=== PATIENT | female | born 1965 | race Two or more races ===

== ENCOUNTER 2018-01-17 15:58 | Inpatient (IN) | payer BC ==
[~2018-01-17] VITALS: Ht 160 cm; Wt 72.0 kg
[2018-01-17 16:52] LABS: Basophils # (auto) 0.1 uL; Eosinophils # (auto) 0 uL; Eosinophils % (auto) 0.2 % (0.0-7.0); Lymphocytes # (auto) 0.9 uL; Mean Corpuscular Volume 61.4 fL (80.0-100.0); Monocytes # (auto) 0.9 uL; Neutrophils # (auto) 6.2 uL; White Blood Cell 8.1 10^3/uL (4.4-10.8)
[2018-01-17 16:54] LABS: Basophils % (auto) 0.8 % (0.0-2.0); Hematocrit 29.4 % (36.0-46.0); Hemoglobin 8.5 g/dL (12.2-16.2); Mean Corpuscular Hemoglobin 17.8 pg (28.0-32.0); Mean Corpuscular Hgb Conc. 29.1 g/dL (32.0-36.0); Monocytes % (auto) 11.7 % (0.0-12.0); Neutrophils % (auto) 76.3 % (37.0-80.0); Platelet Count (auto) 380 10^3/uL (140-450); Red Blood Cells 4.79 10^6/uL (4.0-5.20)
[2018-01-17 17:04] LABS: Albumin 3.8 g/dL (3.4-5.0); Calcium 8.3 mg/dL (8.5-10.1); Potassium 3.5 mmol/L (3.5-5.1)
[2018-01-17 17:07] LABS: BUN/Creatinine Ratio 12.8; Bilirubin, Total 0.5 mg/dL (0.2-1.0); Total Protein 8.5 g/dL (6.4-8.2)
[2018-01-17 17:23] LABS: Urine Bacteria FEW /hpf (None Seen); Urine Blood TRACE /uL (Negative); Urine Mucus FEW (None Seen); Urine Specific Gravity 1.025 (1.001-1.035); Urine WBC 3 /hpf (0 - 5)
[2018-01-17 17:29] LABS: Red Cell Distribution Width 21.4 % (11.8-14.3)
[2018-01-17] MEDS ORDERED: ONDANSETRON HCL 4 MG/2 ML VIAL IV ONE (18:45)
[2018-01-17] MEDS ORDERED: SODIUM CHLORIDE 0.9% 1,000 ML IV ONE ×2 (18:45→19:15)
[2018-01-17] MEDS ORDERED: ACETAMINOPHEN 325 MG TAB PO ONE (19:00)
[2018-01-17 22:00] VITALS: BP 95/47
[2018-01-17] MEDS ORDERED: TEMAZEPAM 15 MG CAP PO PRN (22:00)
[2018-01-17 22:13] LABS: % Iron Saturation 4.4 % (15-50)
[2018-01-17] MEDS: ACETAMINOPHEN 325 MG TAB PO PRN (22:47)
[2018-01-17] MEDS: FAMOTIDINE 20 MG TAB PO SCH (22:47)
[2018-01-18] MEDS ORDERED: LOPERAMIDE HCL 2 MG CAP PO ONE (01:00)
[2018-01-18] MEDS ORDERED: HYDROcodone-ACET 5/325MG TAB PO ONE (01:00)
[2018-01-18 05:26] VITALS: BP 129/63
[2018-01-18 06:39] LABS: Eosinophils # (auto) 0 uL; Eosinophils % (auto) 0.2 % (0.0-7.0); Hemoglobin 7.6 g/dL (12.2-16.2); Lymphocytes # (auto) 1.8 uL; Monocytes # (auto) 0.7 uL; Neutrophils # (auto) 3.5 uL
[2018-01-18 06:49] LABS: Basophils # (auto) 0 uL; Basophils % (auto) 0.8 % (0.0-2.0); Hematocrit 25.5 % (36.0-46.0); Lymphocytes % (auto) 29.8 % (10.0-50.0); Mean Corpuscular Hemoglobin 18.4 pg (28.0-32.0); Mean Corpuscular Hgb Conc. 29.7 g/dL (32.0-36.0); Mean Corpuscular Volume 61.9 fL (80.0-100.0); Monocytes % (auto) 11.8 % (0.0-12.0); Neutrophils % (auto) 57.4 % (37.0-80.0); Nucleated Red Blood Cells % 0.1 %; Platelet Count (auto) 333 10^3/uL (140-450); Red Blood Cells 4.12 10^6/uL (4.0-5.20)
[2018-01-18 06:50] LABS: Calcium 7.7 mg/dL (8.5-10.1); Potassium 3.4 mmol/L (3.5-5.1)
[2018-01-18 06:52] LABS: BUN/Creatinine Ratio 11.1
[2018-01-18 06:53] LABS: Bilirubin, Total 0.3 mg/dL (0.2-1.0)
[2018-01-18 07:03] LABS: Red Cell Distribution Width 21.3 % (11.8-14.3)
[2018-01-18] MEDS: ACETAMINOPHEN 325 MG TAB PO PRN ×2 (07:25→15:40)
[2018-01-18 08:00] VITALS: BP 106/53
[2018-01-18 09:00] VITALS: BP 106/53
[2018-01-18] MEDS: FAMOTIDINE 20 MG TAB PO SCH (09:31)
[2018-01-18] MEDS: FERROUS SULFATE 325 MG TAB PO SCH ×2 (09:31→18:17)
[2018-01-18] MEDS ORDERED: GOLYTELY 4L KIT PO ONE (12:45)
[2018-01-18 13:00] VITALS: BP 112/65
[2018-01-18 14:20] LABS: Amylase 69 U/L (25-115); Lipase 354 U/L (73-393)
[2018-01-18 14:27] LABS: % Iron Saturation 20.4 % (15-50)
[2018-01-18 14:28] LABS: INR 1.03 (0.9-1.15); Partial Thromboplastin Time 30.6 sec (23.78-33.04)
[2018-01-18 14:32] LABS: Cholesterol 112 mg/dL (< 200); Triglycerides 246 mg/dL (< 150)
[2018-01-18] MEDS: SODIUM CHLORIDE 0.9% 1,000 ML IV SCH (14:33)
[2018-01-18 14:34] LABS: HDL Cholesterol 24 mg/dL (40-59); LDL Cholesterol 64 mg/dL (< 100)
[2018-01-18 15:20] LABS: Hepatitis B Surface Antigen Negative (Negative)
[2018-01-18 16:28] LABS: Hepatitis B Surface Antibody Negative
[2018-01-18] MEDS ORDERED: ACETAMINOPHEN 650 MG RECT SUPP PR PRN (16:45)
[2018-01-18 17:00] VITALS: BP 118/71
[2018-01-18 17:01] LABS: Hepatitis C Antibody Negative (Negative)
[2018-01-18 17:02] LABS: Hepatitis A Ab IgM Negative
[2018-01-18 17:03] LABS: Hepatitis B Core IgM Negative; Hepatitis C Antibody Negative (Negative)
[2018-01-18 17:07] LABS: Hepatitis A Total Antibody Positive
[2018-01-18 17:28] LABS: Hepatitis B Surface Antigen Negative (Negative)
[2018-01-18 17:29] LABS: Hepatitis B Core Total AB Negative
[2018-01-18 20:44] LABS: Cholesterol 98 mg/dL (< 200); Triglycerides 209 mg/dL (< 150)
[2018-01-18 20:46] LABS: HDL Cholesterol 22 mg/dL (40-59); LDL Cholesterol 58 mg/dL (< 100)
[2018-01-18] MEDS: PANTOPRAZOLE 40 MG TAB PO SCH (20:53)
[2018-01-18] MEDS: ONDANSETRON HCL 4 MG/2 ML VIAL IV PRN (20:54)
[2018-01-18 21:51] VITALS: BP 96/47
[2018-01-19] MEDS: ONDANSETRON HCL 4 MG/2 ML VIAL IV PRN (01:12)
[2018-01-19] MEDS: SODIUM CHLORIDE 0.9% 1,000 ML IV SCH ×2 (01:20→14:40)
[2018-01-19 05:00] VITALS: BP 105/64
[2018-01-19] MEDS ORDERED: GOLYTELY 4L KIT PO ONE (06:00)
[2018-01-19 06:40] LABS: Eosinophils # (auto) 0 uL; Eosinophils % (auto) 0.3 % (0.0-7.0); Hematocrit 27.5 % (36.0-46.0); Lymphocytes # (auto) 1.6 uL; Mean Corpuscular Hgb Conc. 29.2 g/dL (32.0-36.0); Monocytes # (auto) 0.5 uL; Nucleated Red Blood Cells % 0.1 %; White Blood Cell 4.9 10^3/uL (4.4-10.8)
[2018-01-19 06:42] LABS: Basophils # (auto) 0.1 uL; Basophils % (auto) 1.1 % (0.0-2.0); Lymphocytes % (auto) 32.6 % (10.0-50.0); Mean Corpuscular Volume 61.8 fL (80.0-100.0); Neutrophils # (auto) 2.7 uL; Platelet Count (auto) 347 10^3/uL (140-450); Red Blood Cells 4.44 10^6/uL (4.0-5.20)
[2018-01-19 06:55] LABS: Albumin 3.4 g/dL (3.4-5.0); BUN/Creatinine Ratio 8.6; Potassium 3.4 mmol/L (3.5-5.1)
[2018-01-19 06:57] LABS: Bilirubin, Total 0.4 mg/dL (0.2-1.0); Total Protein 7.8 g/dL (6.4-8.2)
[2018-01-19 06:59] LABS: Red Cell Distribution Width 21.3 % (11.8-14.3)
[2018-01-19 08:00] VITALS: BP 99/57
[2018-01-19] MEDS ORDERED: SODIUM CHLORIDE LOCK 10 ML ONE (08:18)
[2018-01-19] MEDS ORDERED: LIDOCAINE VISCOUS 2% 15ML UD ONE (08:18)
[2018-01-19] MEDS ORDERED: diphenhdrAMINE 50mg/ml (500mg/10ml VIAL) ONE (08:18)
[2018-01-19] MEDS: fentaNYL CITRATE 100 MCG/2 ML VL ONE ×2 (09:27→09:37)
[2018-01-19] MEDS: MIDAZOLAM HCL 5 MG/ML-1ML VIAL ONE ×2 (09:27→09:37)
[2018-01-19] MEDS: PANTOPRAZOLE 40 MG TAB PO SCH ×2 (10:55→21:51)
[2018-01-19] MEDS: FERROUS SULFATE 325 MG TAB PO SCH ×2 (10:55→17:32)
[2018-01-19 12:00] VITALS: BP 114/47
[2018-01-19 16:00] VITALS: BP 112/51
[2018-01-19] MEDS: guaiFENesin-DM 100/10mg/5ml SYR PO PRN ×2 (16:48→21:51)
[2018-01-19 22:00] VITALS: BP 114/68
[2018-01-20] MEDS: SODIUM CHLORIDE 0.9% 1,000 ML IV SCH (05:21)
[2018-01-20 05:46] VITALS: BP 127/70
[2018-01-20 06:20] LABS: Basophils # (auto) 0 uL; Hemoglobin 7.8 g/dL (12.2-16.2); Lymphocytes # (auto) 2.1 uL; Monocytes # (auto) 0.4 uL; Neutrophils # (auto) 2.8 uL; White Blood Cell 5.4 10^3/uL (4.4-10.8)
[2018-01-20 06:23] LABS: Basophils % (auto) 0.5 % (0.0-2.0); Eosinophils # (auto) 0.1 uL; Hematocrit 26.4 % (36.0-46.0); Lymphocytes % (auto) 38.1 % (10.0-50.0); Mean Corpuscular Hemoglobin 18.4 pg (28.0-32.0); Mean Corpuscular Hgb Conc. 29.7 g/dL (32.0-36.0); Mean Corpuscular Volume 61.9 fL (80.0-100.0); Neutrophils % (auto) 52.4 % (37.0-80.0); Nucleated Red Blood Cells % 0.1 %; Platelet Count (auto) 328 10^3/uL (140-450); Potassium 3.3 mmol/L (3.5-5.1); Red Blood Cells 4.26 10^6/uL (4.0-5.20); Red Cell Distribution Width 20.7 % (11.8-14.3)
[2018-01-20 06:34] LABS: Albumin 3.2 g/dL (3.4-5.0); BUN/Creatinine Ratio 6.3; Bilirubin, Total 0.4 mg/dL (0.2-1.0); Calcium 7.7 mg/dL (8.5-10.1); Total Protein 7.3 g/dL (6.4-8.2)
[2018-01-20] MEDS ORDERED: POTASSIUM CHL 20 Meq TABLET PO ONE (08:45)
[2018-01-20 08:50] VITALS: BP 121/58
[2018-01-20] MEDS: FERROUS SULFATE 325 MG TAB PO SCH (09:10)
[2018-01-20] MEDS: PANTOPRAZOLE 40 MG TAB PO SCH (09:11)
[2018-01-20 10:06] VITALS: BP 121/58
== END 2018-01-20 10:25 | disposition home or self-care (01) | DRG 812 ==
LOC: ER 16:05 → CENTRAL 21:52
PROVIDERS: ADMIT Nurse Practitioner; ATTEND Family Medicine
PROC: 0DB68ZX Excision of Stomach, Via Natural or Artificial Opening Endoscopic, Diagnostic (ICD-10-PCS; principal; 2018-01-19 09:23)
PROC: 0DJD8ZZ Inspection of Lower Intestinal Tract, Via Natural or Artificial Opening Endoscopic (ICD-10-PCS; 2018-01-19 09:23)
DX: D50.9 Iron deficiency anemia, unspecified (principal); K29.70 Gastritis, unspecified, without bleeding; E78.1 Pure hyperglyceridemia; R55 Syncope and collapse; M54.9 Dorsalgia, unspecified; R50.9 Fever, unspecified; N92.0 Excessive and frequent menstruation with regular cycle; D63.8 Anemia in other chronic diseases classified elsewhere; J45.909 Unspecified asthma, uncomplicated; K76.0 Fatty (change of) liver, not elsewhere classified; Z80.0 Family history of malignant neoplasm of digestive organs; Z80.8 Family history of malignant neoplasm of other organs or systems; Z83.3 Family history of diabetes mellitus; Z90.49 Acquired absence of other specified parts of digestive tract; Z82.49 Family history of ischemic heart disease and other diseases of the circulatory system
CPT/HCPCS: 36415; 70450; 71046; 74176; 76705; 76830; 76856; 80053; 80061; 80074; 81001; 82150; 82390; 83540; 83550; 83690; 84443; 85025; 85610; 85730; 86038; 86704; 86706; 86708; 86803; 86850; 86900; 86901; 87040; 87086; 87340; 93005; 93306; 93886; 94761; 96361; 96374; A6257; G0378; J1200; J2250; J2405

== ENCOUNTER 2024-01-22 16:02 | Inpatient (IN) | payer BC, OTHER ==
[~2024-01-22] VITALS: Ht 157.5 cm; Wt 67.8 kg
[~2024-01-22 16:02] MED LIST: GLIP5TAB21 PO; METF-372 PO; TRAZ-227 PO
--- NOTE | 2024-01-22 19:28 | DVH ---
Exam: CT CT AB PEL WO CON-NO ORAL OR IV History: n/v Comparison Study: None available at time of dictation. TECHNIQUE: Multidetector CT of the abdomen and pelvis without contrast. Axial, coronal and sagittal m ultiplanar reformats were obtained from the axial data set by the technologist. Radiation Dose Information: CT Dose: CTDI volume is 8.53 mGy. Dose-length product is 480.96 mGy*cm FINDINGS: The lung bases are clear. Partially visualized heart is unremarkable. Status post cholecystectomy. Mild hepatosplenomegaly mild hepatic steatosis. Otherwise, liver, splee n, pancreas and adrenal glands are unremarkable. Kidneys, ureters and urinary bladder are unremarkable. Uterus and adnexa are unremarkable. Tiny hiatal hernia. Stomach is unremarkable. Small bowel loops are unremarkable. Appendix is unremar kable. Sigmoid diverticulosis without diverticulitis. Partially calcified epiploic appendage within t he right hemipelvis. No evidence of intraperitoneal free air or free fluid. No evidence of aortic aneurysm. No significant lymphadenopathy. Minimal left raulito abdominal mesenteric stranding with associated multiple small subcentimeter lymph n odes. Mild diastasis recti. Tiny fat containing umbilical hernia. 1.4 cm left breast nodule with 1.1 cm 1 c m right breast nodules. No destructive osseous lesions are noted. IMPRESSION: No evidence of acute abdominopelvic abnormalities. Mild hepatosplenomegaly with mild hepatic steatosis. Diverticulosis without diverticulitis. 1.4 cm left lateral breast nodule with 1.1 cm and 1 cm right breast nodules. Recommend correlation w ith mammography.
--- NOTE | 2024-01-22 19:28 | ED.PDOC ---
GI ASSESSMENT HPI Comments HPI: Poor Historian. 58-year-old female presents to emergency department for evaluation of two day history of abdominal pain generalized with associated nausea and vomiting nonbilious nonbloody in cleared diarrhea as well that started yesterday. Patient took some Tylenol earlier today for pain control. Pain is constant n onradiating. No alleviating or precipitating factors. Denies any recent traveling outside the country. Denies any sick contacts. Past Medcial History: Diabetes, hyperlipidemia, hypertension Past Surgical History: REVIEW OF SYSTEMS: CONSTITUTIONAL: Denies acute: fever, diaphoresis, chills, HEAD: Denies acute: headache, photophobia Eyes: Denies acute: Double vision, vision loss, eye pain, eye discharge. EARS: Denies acute: tinnitus, hearing loss, ear discharge, ear pain, THROAT: Denies acute: sore throat, swelling, difficulty swallowing , pain with swallowing, change in voice. NECK: Denies acute: neck pain, neck swelling, stiff neck. HEART: Denies acute : chest pain, palpitations, LUNGS: Denies acute: SOB, wheezing, cough, hemoptysis ABDOMEN: Denies acute: melena , hematemesis, hematochezia SKIN: Denies acute: rash, redness, lesions, itchiness. EXTREMITIES: Denies acute: calf pain, numbness, tingling, weakness, denies pain in extremity. Denies acute: Low back pain. Neuro: Denies acute: focal neurological deficit, motor or sensory focal neurological deficit, tremors, seizure like activity, confusion, dizziness, change in mental status, loss of bowel or bladder function, cauda equina like symptoms. : Denies acute: dysuria, hematuria, flank pain, increase in urinary frequency. PSYCH: Denies acute: hallucination, suicidal ideation, homicidal ideation. FEMALE: Denies acute: abnormal vaginal bleeding, foul odor, unusual discharge. PHYSICAL EXAM: General: Mild to moderate acute distress, awake and alert. Head: normocephalic, atraumatic. Neck: supple, trachea is midline, no swelling. Throat: Normal phonation. Eyes:, no erythema, no purulent discharge, no proptosis, no icterus. Heart: regular rate, regular rhythm, no significant murmur appreciated. Lungs: no apparent respiratory distress, Able to speak in full sentences. No wheezing, no rhonchi, no crackles. No stridors Clear to auscultation bilaterally. Abdomen: Generalized but worse in the epigastric tender to palpation, non distended, soft, no guarding, no rebound, + bowel sounds. Neuro: Awake, Alert, oriented to name, self, situation, follows commands GCS=15. Speech is normal. Skin: no petechia, no purpura, no cyanosis, non-pale, not jaundice. Lower extremities: --no - Pitting edema no deformity, no focal swelling, no calf TTP. Makes eye contact. moves all four extremities. Face: no apparent facial droop. No CVA tenderness to percussion bilaterally. Ambulating in the ED independently. Chief Complaint: Nausea/Vomiting Time Seen by MD: 17:13 Primary Care Provider: [facility] Notes: Nurses Notes, Medications, Allergies Allergies: Coded Allergies: No Known Drug Allergy (Verified Allergy, Unknown, 01/17/18) Home Meds Active Scripts Yeast (S. Boulardii)(S. Cerevi (Florastor) 250 Mg Cap, 250 MG PO DAILY for 7 Days, #7 CAP Prov:MARY HALEY RESIDENT 01/23/24 Reported Medications Metformin Hydrochloride (Metformin Hcl) 1,000 Mg Tab, 1 TAB PO BID for 30 Days, #60 01/23/24 Trazodone Hcl (Trazodone Hcl) 50 Mg Tab, 1 TAB PO QPM PRN for FOR INSOMNIA for 30 Days, #30 01/23/24 Glipizide (Glipizide) 5 Mg Tab, 1 TAB PO DAILY for 30 Days, #30 01/23/24 Ergocalciferol (Vitamin D) 50,000 Unit Cap, 1 CAP PO QWEEKLY 01/23/24 Simvastatin (Simvastatin) 40 Mg Tab, 1 TAB PO DAILY 01/23/24 Levothyroxine Sodium (Levothyroxine Sodium) 112 Mcg Tab, 1 TAB PO QAM 01/23/24 Information Source: Patient Mode of Arrival: Ambulatory Past Medical History PAST MEDICAL HISTORY: Denies Surgical History: Cholecystectomy, Family History Family History: No family hx of HTN Social History Smoker: Non-Smoker Alcohol: Denies ETOH Use Drugs: Denies Drug Use Lives In: Home X-Ray, Labs, Meds, VS Vital Signs Date Time Temp Pulse Resp B/P (MAP) Pulse Ox O2 Delivery O2 Flow Rate FiO2 01/22/24 20:11 108 16 120/68 (85) 94 01/22/24 20:08 112 01/22/24 16:43 99.4 113 18 138/74 (95) 97 Lab Test 01/22/24 19:30 01/22/24 19:09 Range/Units Stool Occult Blood Negative Negative Stool Occult Blood Sample #3 Negative Stool for White Cells None seen White Blood Count 8.9 4.4-10.8 10^3/uL Red Blood Count 4.82 4.0-5.20 10^6/uL Hemoglobin 14.2 12.2-16.2 g/dL Hematocrit 42.6 36.0-46.0 % Mean Corpuscular Volume 88.3 80.0-100.0 fL Mean Corpuscular Hemoglobin 29.4 28.0-32.0 pg Mean Corpuscular Hemoglobin Concent 33.3 32.0-36.0 g/dL Red Cell Distribution Width 15.0 H 11.8-14.3 % Platelet Count 254 140-450 10^3/uL Mean Platelet Volume 8.5 6.9-10.8 fL Neutrophils (%) (Auto) 84.3 H 37.0-80.0 % Lymphocytes (%) (Auto) 10.6 10.0-50.0 % Monocytes (%) (Auto) 4.4 0.0-12.0 % Eosinophils (%) (Auto) 0.3 0.0-7.0 % Basophils (%) (Auto) 0.4 0.0-2.0 % Neutrophils # (Auto) 7.5 1.6-8.6 10 ^3/uL Lymphocytes # (Auto) 0.9 0.4-5.4 10 ^3/uL Monocytes # (Auto) 0.4 0-1.3 10 ^3/uL Eosinophils # (Auto) 0 0-0.8 10 ^3/uL Basophils # (Auto) 0 0-0.2 10 ^3/uL Nucleated Red Blood Cells 0.2 % Sodium Level 138 136-145 mmol/L Potassium Level 4.1 3.5-5.1 mmol/L Chloride Level 103 98-107 mmol/L Carbon Dioxide Level 28 20-31 mmol/L Anion Gap 7 5-15 Blood Urea Nitrogen 17 9-23 mg/dL Creatinine 0.85 0.550-1.02 mg/dL Glomerular Filtration Rate Calc 80 >90 mL/min BUN/Creatinine Ratio 20.0 10.0-20.0 Serum Glucose 170 H 74-106 mg/dL Lactic Acid Level 1.8 0.4-2.0 mmol/L Calcium Level 10.3 8.7-10.4 mg/dL Magnesium Level 2.0 1.6-2.6 mg/dL Total Bilirubin 1.1 H 0.2-1.0 mg/dL Aspartate Amino Transferase (AST) 110 H 13-40 U/L Alanine Aminotransferase (ALT) 117 H 7-40 U/L Alkaline Phosphatase 248 H 46-116 U/L Troponin I High Sensitivity < 3 L </=34 ng/L Total Protein 8.0 5.7-8.2 g/dL Albumin 4.8 3.2-4.8 g/dL Lipase 26 12-53 U/L [place] [address] Ph: [phone] DIAGNOSTIC IMAGING Diagnostic Imaging Report : [id number] Signed PATIENT: ENRIQUE CHAU ACCT: [id number] UNIT: [id number] : 1965 LOC: ER ROOM / BED: / AGE / SEX: 58 / F ADM STATUS: REG ER SERVICE 17 ORDERING PHYSICIAN: PERLITA ARNOLD DO PROCEDURE(s): ABPL - CT AB PEL WO CON-NO ORAL OR IV REASON: n/v ORDER NUMBER(s): [id number], ACCESSION NUMBER(s): [id number] Exam: CT CT AB PEL WO CON-NO ORAL OR IV History: n/v Comparison Study: None available at time of dictation. TECHNIQUE: Multidetector CT of the abdomen and pelvis without contrast. Axial, coronal and sagittal multiplanar reformats were obtained from the axial data set by the technologist. Radiation Dose Information: CT Dose: CTDI volume is 8.53 mGy. Dose-length product is 480.96 mGy*cm FINDINGS: The lung bases are clear. Partially visualized heart is unremarkable. Status post cholecystectomy. Mild hepatosplenomegaly mild hepatic steatosis. Otherwise, liver, spleen, pancreas and adrenal glands are unremarkable. Kidneys, ureters and urinary bladder are unremarkable. Uterus and adnexa are unremarkable. Tiny hiatal hernia. Stomach is unremarkable. Small bowel loops are unremarkable. Appendix is unremarkable. Sigmoid diverticulosis without diver ticulitis. Partially calcified epiploic appendage within the right hemipelvis. No evidence of intraperitoneal free air or free fluid. No evidence of aortic aneurysm. No significant lymphadenopathy. Minimal left raulito abdominal mesenteric stranding with associated multiple small subcentimeter lymph nodes. Mild diastasis recti. Tiny fat containing umbilical hernia. 1.4 cm left breast nodule with 1.1 cm 1 cm right breast nodules. No destructive osseous lesions are noted. IMPRESSION: No evidence of acute abdominopelvic abnormalities. Mild hepatosplenomegaly with mild hepatic steatosis. Diverticulosis without diverticulitis. 1.4 cm left lateral breast nodule with 1.1 cm and 1 cm right breast nodules. Recommend correlation with mammography. ATED BY: EMILIA CHEN DO DICTATED DATE/TIME: 01/22/241925 SIGNED BY: EMILIA CHEN DO SIGNED DATE/TIME: 01/22/241925 Departure 1 Departure Time of Disposition: 20:55 Impression: Primary Impression: Abdominal pain Additional Impressions: Nausea vomiting and diarrhea Elevated LFTs Hepatosplenomegaly Breast nodule Disposition: ADMITTED INPATIENT Admit to: Tele Condition: Guarded e-Prescriptions Yeast (S. Boulardii)(S. Cerevi (Florastor) 250 Mg Cap 250 MG PO DAILY for 7 Days, #7 CAP Prov: MARY HALEY RESIDENT 01/23/24 Discharged With: Self I personally scribed for PERLITA ARNOLD DO ([email or web address]) on 01/23/24 at 19:09. Electronically submitted by Arturo Anderson ([email or web address]). PERLITA ARNOLD DO Jan 22, 2024 19:28
[2024-01-22 20:01] LABS: Basophils # (auto) 0 10 ^3/uL (0-0.2); Basophils % (auto) 0.4 % (0.0-2.0); Eosinophils # (auto) 0 10 ^3/uL (0-0.8); Eosinophils % (auto) 0.3 % (0.0-7.0); Hematocrit 42.6 % (36.0-46.0); Hemoglobin 14.2 g/dL (12.2-16.2); Lymphocytes # (auto) 0.9 10 ^3/uL (0.4-5.4); Lymphocytes % (auto) 10.6 % (10.0-50.0); Mean Corpuscular Hemoglobin 29.4 pg (28.0-32.0); Mean Corpuscular Hgb Conc. 33.3 g/dL (32.0-36.0); Mean Corpuscular Volume 88.3 fL (80.0-100.0); Monocytes # (auto) 0.4 10 ^3/uL (0-1.3); Monocytes % (auto) 4.4 % (0.0-12.0); Neutrophils # (auto) 7.5 10 ^3/uL (1.6-8.6); Neutrophils % (auto) 84.3 % (37.0-80.0); Nucleated Red Blood Cells % 0.2 %; Platelet Count (auto) 254 10^3/uL (140-450); Red Blood Cells 4.82 10^6/uL (4.0-5.20); White Blood Cell 8.9 10^3/uL (4.4-10.8)
[2024-01-22 20:15] LABS: Alanine Aminotransferase 117 U/L (7-40); Albumin 4.8 g/dL (3.2-4.8); Alkaline Phosphatase 248 U/L (46-116); Anion Gap 7 (5-15); Aspartate Aminotransferase 110 U/L (13-40); Blood Urea Nitrogen 17 mg/dL (9-23); Calcium 10.3 mg/dL (8.7-10.4); Carbon Dioxide 28 mmol/L (20-31); Chloride 103 mmol/L (98-107); Glucose 170 mg/dL (74-106); Lipase 26 U/L (12-53); Potassium 4.1 mmol/L (3.5-5.1); Sodium 138 mmol/L (136-145)
[2024-01-22 20:16] LABS: Bilirubin, Total 1.1 mg/dL (0.2-1.0)
[2024-01-22] MEDS: D5W/SOD CHLO 0.9% 1,000 ML IV SCH (21:30)
[2024-01-22] MEDS ORDERED: MORPHINE SULFATE INJ 2 MG/ml SYRG IV PRN (21:30)
[2024-01-22] MEDS ORDERED: NITROGLYCERIN 0.4 MG SL TAB SL PRN (21:30)
[2024-01-22] MEDS ORDERED: DEXTROSE (50%) 50ML SYRG IV PRN (21:45)
[2024-01-22] MEDS ORDERED: hydrALAZINE HCL 20 MG/ML VL IV PRN (21:45)
[2024-01-22] MEDS: ACCU-CHEK COMFORT CURVE STRIP VI SCH (22:00)
[2024-01-22] MEDS: InsuLIN REG 1unit/0.01ml Soln (100units/ml) SC SCH (22:00)
--- NOTE | 2024-01-22 22:10 | DVHHPRES ---
History of Present Illness Resident Creating Document: SEBASTIAN ELLISON RESIDENT History of Present Illness Patient is 58 years old female with past medical history of diabetes mellitus type 2, hyperlipidemia, hypothyroidism came with a complaint of abdominal pain and nausea and vomiting. As per patient she has been having abdominal pain started last night, sudden onset, crampy in nature, 8/10 in severity, intermittent, relieved with some Tylenol but pain comes comes back. Patient also endorsed nausea and vomiting almost 6-7 times, watery content, no blood. On further questioning patient also endorsed diarrhea almost 7-8 times, watery, no blood. Patient also reported having fever almost 101 F at home. on further inquiry patient reported having headache, 8/10 in severity, pounding which relieved with Tylenol. Patient denied any dysuria, sick contact, any unusual new food, acute joint pain or swelling, chest pain or shortness of breath, anemia new medication. Initial lab workup revealed transaminitis with bilirubin 1.1, AST 110, ALT 117, alkaline phosphatase 248, elevated blood sugar 170. Other lab workup including WBC/hemoglobin/platelets/sodium/potassium/serum creatinine/troponin I/lipase with a normal limit. CT abdomen revealed-No evidence of acute abdominopelvic abnormalities. Mild hepatosplenomegaly with mild hepatic steatosis. Diverticulosis without diverticulitis. 1.4 cm left lateral breast nodule with 1.1 cm and 1 cm right breast nodules. Recommend correlation with mammography. Past Medical History diabetes mellitus, hyperlipidemia, hypothyroidism Past Surgical History , cholecystectomy Past Social History Denies smoking/alcoholism/drug abuse, lives at home with Review of Systems Review of Systems Allergy- NKDA Patient was seen today at the bedside. Cardiovascular- deny acute chest pain or shortness of breath or cough or palpitation Respiratory- denies cough or short of breath or wheezing Musculoskeletal-denies acute joint swelling or tenderness or redness Neurological- denies acute dysarthria, dysphagia, change in vision Psychiatry- denies depression or SI or HI Skin- denies acute rash or purpura Allergies: Coded Allergies: No Known Drug Allergy (Verified Allergy, Unknown, 01/17/18) Medications Current Medications Medications Dose Ordered Sig/Sheba Route Start Time Stop Time Status Last Admin Dose Admin Sodium Chloride 10 ml Q8HR IV 01/22/24 22:00 UNV Morphine Sulfate 2 mg Q4HPRN PRN IV 01/22/24 21:30 UNV Nitroglycerin 0.4 mg Q5MINP PRN SL 01/22/24 21:30 UNV Morphine Sulfate 2 mg Q30M PRN IV 01/22/24 21:30 UNV Dextrose/Sodium Chloride 1,000 ml @ 125 mls/hr Q8H IV 01/22/24 21:30 UNV Ondansetron HCl 4 mg Q4HPRN PRN IV 01/22/24 21:30 UNV Pantoprazole Sodium 40 mg DAILY IV 01/23/24 10:00 UNV Hydralazine HCl 10 mg Q6HP PRN IV 01/22/24 21:45 UNV Diagnostic Test (Pha) 1 strip ACHS 01/22/24 22:00 UNV Insulin Human Regular ACHS SC 01/22/24 22:00 UNV Dextrose 50 ml UD PRN IV 01/22/24 21:45 UNV Exam Vital Signs Vital Signs Date Time Temp Pulse Resp B/P (MAP) Pulse Ox O2 Delivery O2 Flow Rate FiO2 01/22/24 20:11 108 16 120/68 (85) 94 01/22/24 16:43 99.4 Exam General examination- , alert, oriented, conversant HEENT- PEERLA, no acute nasal discharge Cardiovascular- S1-S2 audible, rate and rhythm regular, no murmur Respiratory- CTAB, no wheeze or rhonchi Gastrointestinal-mildly tender abdomen+, bowel sound+. Nondistended Musculoskeletal-no acute joint swelling or tenderness or redness# Lower extremity- no leg edema Neurological- cranial nerves intact, no acute dysarthria or dysphagia Psychiatry- denies depression or SI or HI Skin- no acute rash or purpura Labs/Xrays Labs Test 01/22/24 19:30 01/22/24 19:09 Range/Units White Blood Count 8.9 4.4-10.8 10^3/uL Red Blood Count 4.82 4.0-5.20 10^6/uL Hemoglobin 14.2 12.2-16.2 g/dL Hematocrit 42.6 36.0-46.0 % Mean Corpuscular Volume 88.3 80.0-100.0 fL Mean Corpuscular Hemoglobin 29.4 28.0-32.0 pg Mean Corpuscular Hemoglobin Concent 33.3 32.0-36.0 g/dL Red Cell Distribution Width 15.0 H 11.8-14.3 % Platelet Count 254 140-450 10^3/uL Mean Platelet Volume 8.5 6.9-10.8 fL Neutrophils (%) (Auto) 84.3 H 37.0-80.0 % Lymphocytes (%) (Auto) 10.6 10.0-50.0 % Monocytes (%) (Auto) 4.4 0.0-12.0 % Eosinophils (%) (Auto) 0.3 0.0-7.0 % Basophils (%) (Auto) 0.4 0.0-2.0 % Neutrophils # (Auto) 7.5 1.6-8.6 10 ^3/uL Lymphocytes # (Auto) 0.9 0.4-5.4 10 ^3/uL Monocytes # (Auto) 0.4 0-1.3 10 ^3/uL Eosinophils # (Auto) 0 0-0.8 10 ^3/uL Basophils # (Auto) 0 0-0.2 10 ^3/uL Nucleated Red Blood Cells 0.2 % Sodium Level 138 136-145 mmol/L Potassium Level 4.1 3.5-5.1 mmol/L Chloride Level 103 98-107 mmol/L Carbon Dioxide Level 28 20-31 mmol/L Anion Gap 7 5-15 Blood Urea Nitrogen 17 9-23 mg/dL Creatinine 0.85 0.550-1.02 mg/dL Glomerular Filtration Rate Calc 80 >90 mL/min BUN/Creatinine Ratio 20.0 10.0-20.0 Serum Glucose 170 H 74-106 mg/dL Lactic Acid Level 1.8 0.4-2.0 mmol/L Calcium Level 10.3 8.7-10.4 mg/dL Magnesium Level 2.0 1.6-2.6 mg/dL Total Bilirubin 1.1 H 0.2-1.0 mg/dL Aspartate Amino Transferase (AST) 110 H 13-40 U/L Alanine Aminotransferase (ALT) 117 H 7-40 U/L Alkaline Phosphatase 248 H 46-116 U/L Troponin I High Sensitivity < 3 L </=34 ng/L Total Protein 8.0 5.7-8.2 g/dL Albumin 4.8 3.2-4.8 g/dL Lipase 26 12-53 U/L Assessment/Plan Assessment/Plan Abdominal pain, nausea and vomiting likely due to gastroenteritis -lipase 26, - CT abdomen revealed-No evidence of acute abdominopelvic abnormalities. Mild hepatosplenomegaly with mild hepatic steatosis. Diverticulosis without diverticulitis. 1.4 cm left lateral breast nodule with 1.1 cm and 1 cm right breast nodules. Recommend correlation with mammography. -continue IV fluid D5ANS @125 mL/hour -continue ceftriaxone 1 g IV daily -continue metronidazole 500 mg q.8h # acute gastroenteritis --continue IV fluid D5ANS @125 mL/hour -continue ceftriaxone 1 g IV daily -continue metronidazole 500 mg q.8h #Diabetes mellitus type 2 -pending HGB A1c -continue sliding scale as prescribed # hypothyroidism -continue levothyroxine 112 mcg q.d. -pending TSH # transaminitis -total bilirubin 1.1, AST 110, ALT 117, alkaline phosphatase 248 -monitor LFT -continue current management # hyperlipidemia -continue simvastatin 40 mg daily # Mild hepatosplenomegaly with mild hepatic steatosis -follow up outpatient # Diverticulosis without diverticulitis. -follow up outpatient # bilateral breast nodule - 1.4 cm left lateral breast nodule with 1.1 cm and 1 cm right breast nodules. R -follow up outpatient with the primary care physician Goals of care/advance care planning; FULL CODE; discussed with the patient >15 minutes PUD prophylaxis: Pantoprazole DVT prophylaxis: Patient ambulating Plan discussed with Dr. Nichols, nursing staff, patient Total time spent on patient evaluation, chart review, assessment and plan, discussion discussion >30 minutes Plan discussed with: Patient Plan discussed with: Patient, Spouse, Other (RN) My Orders Orders - SEBASTIAN ELLISON RESIDENT Procedure Category Date Status Time Admit ADMIT 01/22/24 Transmitted 21:23 Code Status CODE 01/22/24 Transmitted 21:23 Sodium Chloride Lock PHA 01/22/24 Logged (Saline Lock Ns) 22:00 Complete Blood Count LAB 01/23/24 Verified 04:00 Comprehensive LAB 01/23/24 Verified Metabolic Panel 04:00 Npo (Nothing By DIET 01/23/24 Transmitted Mouth) Diet Breakfast Morphine Sulfate PHA 01/22/24 Logged Injection 21:30 Nitroglycerin PHA 01/22/24 Logged Sublingual (Ntrostat 21:30 Morphine Sulfate PHA 01/22/24 Logged Injection 21:30 Oxygen By Nasal RT 01/22/24 Transmitted Cannula 21:23 Stat Ekg For Chest BANNER 01/22/24 In Process Pain 21:23 Notify Md Of Changes BANNER 01/22/24 In Process From Base 21:23 Hedis Registered Nurse Rn For BANNER 01/22/24 In Process 24 Hours 21:23 Emergency Dysrhythmia BANNER 01/22/24 In Process Protocol 21:23 Rhythm Strips Once BANNER 01/22/24 In Process Every Shift 21:23 D5w/Sod Chlo 0.9% PHA 01/22/24 Logged (D5w Ns 0.9%) 21:30 Ondansetron Hcl PHA 01/22/24 Logged (Zofran) 21:30 Pantoprazole PHA 01/23/24 Logged (Protonix) 10:00 Pantoprazole PHA 01/22/24 Verified (Protonix) 21:30 Hydralazine Injection PHA 01/22/24 Logged (Apresoline Inject 21:45 Glucose Blood PHA 01/22/24 Logged (Accu-Chek Comfort 22:00 Insulin R (Human) PHA 01/22/24 Logged (Insulin R) 22:00 Dextrose 50% Syringe PHA 01/22/24 Logged 21:45 Date of Service: Jan 22, 2024 Billing Provider: RANDALL NICHOLS MD Common Visit Codes: [id number] INP/OBS CARE (HIGH) SEBASTIAN ELLISON RESIDENT Jan 22, 2024 22:10 RANDALL NICHOLS MD Jan 23, 2024 08:07
[2024-01-22] MEDS: cefTRIAXone 1GM/50ML D5W 50 ML IV ONE (22:15)
[2024-01-22] MEDS: metroNIDAZOLE 500MG/100ML 100 ML IV ONE (22:15)
[2024-01-23] MEDS ORDERED: LEVO112T4 PO (00:17)
[2024-01-23] MEDS ORDERED: SIMV40TA18 PO (00:17)
[2024-01-23] MEDS ORDERED: ERGO1CAP12 PO (00:17)
[2024-01-23 00:20] VITALS: PULSE 87; RESP 16; O2SAT 97
[2024-01-23] MEDS ORDERED: ERGOCALCIFEROL 50,000 UNIT(1.25MG) CAP PO SCH (00:30)
[2024-01-23] MEDS: PANTOPRAZOLE 40 MG/10 ML VIAL INJ IV ONE (00:46)
[2024-01-23] MEDS: SODIUM CHLOR 0.9% PF (SALINE LOCK) 10ML VIAL/SYR IV SCH (00:47)
[2024-01-23] MEDS: MORPHINE SULFATE INJ 2 MG/ml SYRG IV ONE (00:47)
[2024-01-23] MEDS: ONDANSETRON HCL 4 MG/2 ML VIAL IV PRN (00:58)
[2024-01-23] MEDS: ATORVASTATIN 20 MG TAB PO SCH (00:58)
[2024-01-23 05:44] LABS: Basophils # (auto) 0 10 ^3/uL (0-0.2); Basophils % (auto) 0.4 % (0.0-2.0); Eosinophils # (auto) 0 10 ^3/uL (0-0.8); Eosinophils % (auto) 0.3 % (0.0-7.0); Hematocrit 33.7 % (36.0-46.0); Lymphocytes # (auto) 2.3 10 ^3/uL (0.4-5.4); Lymphocytes % (auto) 26.1 % (10.0-50.0); Mean Corpuscular Hemoglobin 34.1 pg (28.0-32.0); Mean Corpuscular Hgb Conc. 35.5 g/dL (32.0-36.0); Mean Corpuscular Volume 96.2 fL (80.0-100.0); Monocytes # (auto) 0.6 10 ^3/uL (0-1.3); Monocytes % (auto) 6.4 % (0.0-12.0); Neutrophils % (auto) 66.8 % (37.0-80.0); Nucleated Red Blood Cells % 0.1 %; Platelet Count (auto) 343 10^3/uL (140-450); Red Blood Cells 3.51 10^6/uL (4.0-5.20); Red Cell Distribution Width 12.9 % (11.8-14.3); White Blood Cell 8.9 10^3/uL (4.4-10.8)
[2024-01-23] MEDS: metroNIDAZOLE 500MG/100ML 100 ML IV SCH (06:00)
[2024-01-23 06:16] LABS: Alanine Aminotransferase 26 U/L (7-40); Albumin 4.6 g/dL (3.2-4.8); Alkaline Phosphatase 70 U/L (46-116); Anion Gap 8 (5-15); Aspartate Aminotransferase 20 U/L (13-40); BUN/Creatinine Ratio 12.3 (10.0-20.0); Blood Urea Nitrogen 14 mg/dL (9-23); Calcium 10.3 mg/dL (8.7-10.4); Carbon Dioxide 23 mmol/L (20-31); Chloride 103 mmol/L (98-107); Potassium 3.4 mmol/L (3.5-5.1); Sodium 134 mmol/L (136-145)
[2024-01-23 06:17] LABS: Bilirubin, Direct 0.3 mg/dL (<0.3); Bilirubin, Total 0.8 mg/dL (0.2-1.0); Glucose 112 mg/dL (74-106); Total Protein 7.4 g/dL (5.7-8.2)
--- NOTE | 2024-01-23 07:00 | ECG ---
[facility] Test Date: 2024-01-22 Test Time: 20:08:19 Pat Name: ENRIQUE CHAU Department: ED Room: [address] [place] [address] Gender: F [employer] Route Aide: MARISELA : 1965 Requested By: PERLITA ARNOLD Order Number: [id number] Reading MD: Measurements Intervals [place] Rate: 112 P: 76 CA: 151 QRS: 87 QRSD: 95 T: 62 QT: 355 QTc: 485 Interpretive Statements Sinus tachycardia LAE, consider biatrial enlargement Borderline T abnormalities, lateral leads Baseline wander in lead(s) V6 Please click the below link to view image of tracing.
[2024-01-23] MEDS: LEVOTHYROXINE SODIUM 112 MCG TAB PO SCH (07:30)
[2024-01-23 07:33] VITALS: PULSE 95; RESP 18; O2SAT 98
[2024-01-23] MEDS: POTASSIUM CHL 20 Meq TABLET PO ONE (09:01)
[2024-01-23] MEDS: cefTRIAXone 1GM/50ML D5W 50 ML IV SCH (09:01)
[2024-01-23] MEDS: PANTOPRAZOLE 40 MG/10 ML VIAL INJ IV SCH (09:01)
[2024-01-23] MEDS: MORPHINE SULFATE INJ 2 MG/ml SYRG IV PRN (09:02)
[2024-01-23] MEDS ORDERED: PATIENTS OWN MEDICATION (Simvastatin 1 TAB) PO SCH (10:00)
[2024-01-23] MEDS: LACTATED RINGER'S 1,000 ML IV SCH (12:32)
[2024-01-23] MEDS ORDERED: SACC250C PO (14:13)
[2024-01-23 19:48] VITALS: BP 113/66; PULSE 75; RESP 16; TEMP 98.1; O2SAT 99
--- NOTE | 2024-01-23 20:27 | DVHDSRES ---
Discharge Summary Date of Admission Resident Creating Document: LAURA RIVERO RESIDENT Jan 22, 2024 at 21:23 Date of Discharge: Jan 23, 2024 Admitting Diagnosis # Abdominal pain, nausea and vomiting likely due to gastroenteritis # acute gastroenteritis #Diabetes mellitus type 2 # hypothyroidism # transaminitis # hyperlipidemia # Mild hepatosplenomegaly with mild hepatic steatosis # Diverticulosis without diverticulitis. # bilateral breast nodule Wounds: no wounds Labs/Diagnostic Data: Laboratory Results Test 01/23/24 12:16 01/23/24 04:29 01/22/24 19:30 01/22/24 19:09 POC Glucose 168 mg/dl (70-106) White Blood Count 8.9 10^3/uL (4.4-10.8) Red Blood Count 3.51 10^6/uL (4.0-5.20) Hemoglobin 12.0 g/dL (12.2-16.2) Hematocrit 33.7 % (36.0-46.0) Mean Corpuscular Volume 96.2 fL (80.0-100.0) Mean Corpuscular Hemoglobin 34.1 pg (28.0-32.0) Mean Corpuscular Hemoglobin Concent 35.5 g/dL (32.0-36.0) Red Cell Distribution Width 12.9 % (11.8-14.3) Platelet Count 343 10^3/uL (140-450) Mean Platelet Volume 6.6 fL (6.9-10.8) Neutrophils (%) (Auto) 66.8 % (37.0-80.0) Lymphocytes (%) (Auto) 26.1 % (10.0-50.0) Monocytes (%) (Auto) 6.4 % (0.0-12.0) Eosinophils (%) (Auto) 0.3 % (0.0-7.0) Basophils (%) (Auto) 0.4 % (0.0-2.0) Neutrophils # (Auto) 6.0 10 ^3/uL (1.6-8.6) Lymphocytes # (Auto) 2.3 10 ^3/uL (0.4-5.4) Monocytes # (Auto) 0.6 10 ^3/uL (0-1.3) Eosinophils # (Auto) 0 10 ^3/uL (0-0.8) Basophils # (Auto) 0 10 ^3/uL (0-0.2) Nucleated Red Blood Cells 0.1 % Sodium Level 134 mmol/L (136-145) Potassium Level 3.4 mmol/L (3.5-5.1) Chloride Level 103 mmol/L (98-107) Carbon Dioxide Level 23 mmol/L (20-31) Anion Gap 8 (5-15) Blood Urea Nitrogen 14 mg/dL (9-23) Creatinine 1.14 mg/dL (0.550-1.02) Glomerular Filtration Rate Calc 57 mL/min (>90) BUN/Creatinine Ratio 12.3 (10.0-20.0) Serum Glucose 112 mg/dL (74-106) Hemoglobin A1c 5.5 % A1C (<5.7) Calcium Level 10.3 mg/dL (8.7-10.4) Total Bilirubin 0.8 mg/dL (0.2-1.0) Direct Bilirubin 0.3 mg/dL (<0.3) Aspartate Amino Transferase (AST) 20 U/L (13-40) Alanine Aminotransferase (ALT) 26 U/L (7-40) Alkaline Phosphatase 70 U/L (46-116) Total Protein 7.4 g/dL (5.7-8.2) Albumin 4.6 g/dL (3.2-4.8) Thyroid Stimulating Hormone (TSH) 1.53 uIU/mL (0.55-4.78) Plasma/Serum Blood Alcohol < 3.0 mg/dL (<10) Stool Occult Blood Negative (Negative) Stool Occult Blood Sample #3 (Negative) Stool for White Cells None seen Lactic Acid Level 1.8 mmol/L (0.4-2.0) Magnesium Level 2.0 mg/dL (1.6-2.6) Troponin I High Sensitivity < 3 ng/L (</=34) Lipase 26 U/L (12-53) Other Laboratory Tests 01/23/24 04:29 Brief Hx & Hospital Course: HPI Patient is a 58-year-old female with a past medical history as described below came to the ED with a chief complaint of intractable nausea vomiting and diarrhea. Patient was apparently well about 1 day prior to admission when she reported he suddenly started have nausea followed by multiple episodes of vomiting. She slept overnight in the next day she again had multiple episodes of vomiting and multiple episodes of diarrhea. Vomitings were not associated with the blood. Diarrhea was watery, brownish liquid no evidence of melena or hematochezia. Patient denied recent travel history, sick contacts, eating food out of the normal. Patient does report a history of tooth infection for which she was treated for the whole month of December with antibiotics initially amoxicillin and data clindamycin. She reportedly took 15 tablets of clindamycin. Patient had associated crampy abdominal pain when she had diarrhea. Past medical history: Type 2 diabetes mellitus, hypothyroidism, hyperlipidemia Past surgical history: 1 C section Social history: Denies smoking, alcohol, drug use and lives with Home medications: Metformin 1000 mg b.i.d., 112 mg levothyroxine, 40 mg simvastatin Hospital course Patient was admitted and given pain medication for abdominal pain. IV fluids were given. Patient had 2-3 watery stools, while in the hospital and stool samples were collected and sent for stool WBCs, stool occult blood which were negative. Stool sample was sent for Gram stain and bacterial culture, ova and parasites, C diff toxin detection. Patient was clinically stable with no fever, no hypotension, no tachycardia, no tachypnea. Patient refused with the IV fluids and was discharged in stable condition to home, but advised to follow up with the primary care provider with the results of the C diff toxin. Review of systems Patient seen and examined at the bedside. Alert and oriented x4. Patient reported her abdominal pain has improved and does not have anymore nausea, vomiting. Patient had 2 episodes of diarrhea overnight in the hospital but denied further diarrhea. Patient reports that she is feeling better and wanted to go home. Physical Examination Gen - no pallor, no icterus, no cyanosis, no clubbing, no LAD, no edema . Skin - Patients skin is warm and dry. HEENT - normocephalic, atraumatic, dry mucous membranes. Neck - full ROM, no LAD Pulmonary - B/L vesicular breath sounds. no crackles , no wheezing, no stridor. cardiovascular - normal S1,S2 heard. no murmurs heard. peripheral pulses radial 2+, pedal 2+. GI - soft abdomen without tenderness to palpation. no hepatospleenomegaly. Bowel sounds normoactive Neurological - Patient is A/O X 3 . Bilateral upper extremity strength 5/5, bilateral lower extremity strength 5/5, no facial droop, normal speech, no tremor, no sensory deficiets. Discharge plan Patient was discharged in stable condition advised to follow up in the discharge clinic next week. Advised to follow up with the PCP in 1 week. Medication: Florastor p.o. daily 7 days Home medication continued Operations or Procedures CT abdomen pelvis without contrast FINDINGS: The lung bases are clear. Partially visualized heart is unremarkable. Status post cholecystectomy. Mild hepatosplenomegaly mild hepatic steatosis. Otherwise, liver, spleen, pancreas and adrenal glands are unremarkable. Kidneys, ureters and urinary bladder are unremarkable. Uterus and adnexa are unremarkable. Tiny hiatal hernia. Stomach is unremarkable. Small bowel loops are unremarkable. Appendix is unremarkable. Sigmoid diverticulosis without diverticulitis. Partially calcified epiploic appendage within the right hemipelvis. No evidence of intraperitoneal free air or free fluid. No evidence of aortic aneurysm. No significant lymphadenopathy. Minimal left raulito abdominal mesenteric stranding with associated multiple small subcentimeter lymph nodes. Mild diastasis recti. Tiny fat containing umbilical hernia. 1.4 cm left breast nodule with 1.1 cm 1 cm right breast nodules. No destructive osseous lesions are noted. IMPRESSION: No evidence of acute abdominopelvic abnormalities. Mild hepatosplenomegaly with mild hepatic steatosis. Diverticulosis without diverticulitis. 1.4 cm left lateral breast nodule with 1.1 cm and 1 cm right breast nodules. Recommend correlation with mammography. Condition at Discharge: Good Final Diagnosis/Problems List # Acute Gastroenteritis likely Viral in etiology # Rule out C.diff colitis # hypothyroidism # transaminitis # hyperlipidemia # Diverticulosis without diverticulitis. # Mild hepatosplenomegaly with mild hepatic steatosis # bilateral breast nodule Discharge Disposition: Home Discharge Instruct/Medications Diet: Regular Activity: No Restrictions, As Tolerated Follow Up/Referral: fu with pcp in 1 week fu in dc clinic next week Medications: continue home meds as prescribed continue florastor Discharge Statement: "Patient was advised to return to the ER or call 911 if any headaches, dizziness, shortness of breath, chest pain, abdominal pain, bleeding, fevers, or worsening of medical condition. Patient was counseled about treatment plan, medications, possible side effects, patientverbalized understanding. All questions were answered to the best of my ability. This discharge took greater then 30 minutes in planning, reviewing documentation, counseling the patient, and discussing with other team members." ASSESSMENT ASSESSMENT Assessment viral gastroenteritis Date of Service: Jan 23, 2024 Billing Provider: KENTON HICKS MD Common Visit Codes: 75414-OFJ/OBS DISCH DAY >30min LAURA RIVERO RESIDENT Jan 23, 2024 20:27 KENTON HICKS MD Jan 24, 2024 10:15
[2024-01-24] MEDS ORDERED: FLORASTOR (S. BOULARDII) 250 MG CAP PO SCH (10:00)
== END 2024-01-23 19:51 | disposition home or self-care (01) | DRG 392 ==
LOC: ER 16:02 → OVERFLOW 21:23
PROVIDERS: ADMIT Student in an Organized Health Care Education/Training Program; ATTEND Student in an Organized Health Care Education/Training Program
DX: A08.4 Viral intestinal infection, unspecified (principal); A04.72 Enterocolitis due to Clostridium difficile, not specified as recurrent; R74.01 Elevation of levels of liver transaminase levels; R16.2 Hepatomegaly with splenomegaly, not elsewhere classified; K57.30 Diverticulosis of large intestine without perforation or abscess without bleeding; K76.0 Fatty (change of) liver, not elsewhere classified; N63.10 Unspecified lump in the right breast, unspecified quadrant; E78.5 Hyperlipidemia, unspecified; E03.9 Hypothyroidism, unspecified; Z79.899 Other long term (current) drug therapy; Z90.49 Acquired absence of other specified parts of digestive tract
CPT/HCPCS: 36415; 74176; 80053; 80320; 82248; 82270; 82962; 83036; 83605; 83690; 83735; 84443; 84484; 85025; 85048; 87177; 93005; G0378; J1815; J2405; J2470